=== PATIENT | male | born 1995 | race Caucasian/White ===

== ENCOUNTER 2019-02-22 17:12 | Emergency (ER) | payer OTHER ==
[~2019-02-22] VITALS: Ht 177.8 cm; Wt 130.2 kg
[2019-02-22 17:22] VITALS: Ht 177.8 cm; Wt 130.2 kg
[2019-02-22 18:04] LABS: BASOPHIL % 0.3 % (0-2); PLATELET COUNT 326 x10^3mcL (130-400); RED CELL DISTRIBUTION WIDTH 13.2 % (11.5-14.5)
[2019-02-22 18:11] LABS: CALCIUM 9.3 mg/dL (8.5-10.1); CHLORIDE SERUM 101 mmol/L (98-107); CREATININE SERUM 1.2 mg/dL (0.7-1.3); GFR1 > 60 mL/min; GLUCOSE SERUM 114 mg/dL (74-106); POTASSIUM SERUM 3.4 mmol/L (3.5-5.1); SODIUM SERUM 141 mmol/L (136-145)
[2019-02-22 18:16] LABS: ALBUMIN 4.1 g/dL (3.4-5.0); ALKALINE PHOSPHATASE 81 U/L (46-116); ALT/SGPT 51 U/L (16-63); AST/SGOT 20 U/L (15-37); BILIRUBIN TOTAL 1.3 mg/dL (0.20-1.00); TOTAL PROTEIN, SERUM 8.1 g/dL (6.4-8.2)
[2019-02-22 20:09] VITALS: BP 147/95
== END 2019-02-22 20:09 | disposition home or self-care (01) ==
LOC: ED 17:12
PROVIDERS: Emergency Medicine
DX: N20.2 Calculus of kidney with calculus of ureter (principal)
CPT/HCPCS: J1885; J2270; J2405; J7030

== ENCOUNTER 2020-01-06 23:06 | Inpatient (IN) | payer OTHER ==
[~2020-01-06] VITALS: Ht 177.8 cm; Wt 138.3 kg
[2020-01-06 23:19] VITALS: Ht 177.8 cm; Wt 138.3 kg
[2020-01-07] VITALS (7 sets, daily range): BP systolic 121–157; BP diastolic 70–92
[2020-01-07] MEDS ORDERED: PROAIR HFA8.5 GM INH (02:15)
[2020-01-07 02:36] LABS: BASOPHIL % 0.2 % (0-2); PLATELET COUNT 283 x10^3mcL (130-400); RED CELL DISTRIBUTION WIDTH 13.3 % (11.5-14.5)
[2020-01-07 02:44] LABS: CALCIUM 8.9 mg/dL (8.5-10.1); CARBON DIOXIDE 27.9 mmol/L (21-32); CHLORIDE SERUM 105 mmol/L (98-107); CREATININE SERUM 1.3 mg/dL (0.7-1.3); GFR1 > 60 mL/min; GLUCOSE SERUM 143 mg/dL (74-106); POTASSIUM SERUM 4.6 mmol/L (3.5-5.1); SODIUM SERUM 139 mmol/L (136-145)
[2020-01-08 04:46] VITALS: BP 137/84
[2020-01-08 07:10] LABS: BASOPHIL % 0.4 % (0-2); PLATELET COUNT 248 x10^3mcL (130-400); RED CELL DISTRIBUTION WIDTH 13.4 % (11.5-14.5)
[2020-01-08 07:31] LABS: CALCIUM 8.7 mg/dL (8.5-10.1); CARBON DIOXIDE 29.9 mmol/L (21-32); CHLORIDE SERUM 104 mmol/L (98-107); CREATININE SERUM 1.1 mg/dL (0.7-1.3); GFR1 > 60 mL/min; GLUCOSE SERUM 99 mg/dL (74-106); POTASSIUM SERUM 3.8 mmol/L (3.5-5.1); SODIUM SERUM 140 mmol/L (136-145)
[2020-01-08 07:52] VITALS: BP 143/88
[2020-01-08 12:40] VITALS: BP 154/79
[2020-01-08 12:47] VITALS: BP 134/79
[2020-01-08] MEDS ORDERED: NORCO 10-325 T1 EACH PO (13:46)
[2020-01-08] MEDS ORDERED: ZOFRAN4 M3 PO (13:47)
[2020-01-08] MEDS ORDERED: KEFLEX500 M1 PO (13:47)
[2020-01-08] MEDS ORDERED: IBU600 M2 PO (13:47)
== END 2020-01-08 16:27 | disposition home or self-care (01) | DRG 493 ==
LOC: ED 23:06 → MU 01-07 02:22 → DU 01-07 02:22
PROVIDERS: Emergency Medicine; Orthopaedic Surgery; ADMIT Internal Medicine
PROC: 0QSKXZZ Reposition Left Fibula, External Approach (ICD-10-PCS; 2020-01-07)
PROC: 0QSH04Z Reposition Left Tibia with Internal Fixation Device, Open Approach (ICD-10-PCS; 2020-01-08)
PROC: 0MQR0ZZ Repair Left Ankle Bursa and Ligament, Open Approach (ICD-10-PCS; 2020-01-08)
PROC: 0QSK04Z Reposition Left Fibula with Internal Fixation Device, Open Approach (ICD-10-PCS; principal; 2020-01-08 08:30)
DX: S82.892A Other fracture of left lower leg, initial encounter for closed fracture (principal); Z68.41 Body mass index [BMI] 40.0-44.9, adult; S82.832A Other fracture of upper and lower end of left fibula, initial encounter for closed fracture; W18.39XA Other fall on same level, initial encounter; Y93.89 Activity, other specified; Y92.89 Other specified places as the place of occurrence of the external cause; Y99.8 Other external cause status; J45.909 Unspecified asthma, uncomplicated; Z71.3 Dietary counseling and surveillance; E66.01 Morbid (severe) obesity due to excess calories
CPT/HCPCS: G0378; J0690; J1170; J1885; J2270; J2405; J2704; J3010; J3490; J7030; Q0092

== ENCOUNTER → 2020-01-21 | Outpatient (CLI) | payer OTHER ==
[~2020-01-21] MED LIST: IBU600 M2 PO; KEFLEX500 M1 PO; NORCO 10-325 T1 EACH PO; PROAIR HFA8.5 GM INH; ZOFRAN4 M3 PO
== END | disposition home or self-care (01) ==
LOC: RD 09:51
DX: S82.892A Other fracture of left lower leg, initial encounter for closed fracture (principal); X58.XXXA Exposure to other specified factors, initial encounter; Y92.9 Unspecified place or not applicable